=== PATIENT | female | born 1935 | race Caucasian/White ===

== ENCOUNTER 2017-02-13 08:07 | Observation (INO) | payer OTHER ==
--- NOTE | 2017-02-12 21:03 | GHP ---
[f rep st] PREOP HISTORY AND PHYSICAL DATE OF ADMISSION: 02/13/2017 HISTORY OF PRESENT ILLNESS: The patient is an 81-year-old female who was found to have gallstones o n an ultrasound to evaluate postprandial epigastric and right upper quadrant pain with radiation to her back, with no nausea, vomiting, or fevers. [place] foods are exacerbating. Spicy foods do nothi ng. Rolaids help, but she says this pain is different from her other heartburn pain. She said she had labs a few months ago and was told they were normal. Abdominal surgical history includes vagina l hysterectomy. PAST MEDICAL HISTORY: Includes osteoporosis; L1, L2 fractures treated with brace. PAST SURGICAL HISTORY: Hysterectomy. MEDICATIONS: Fosamax. Multivitamins. Rolaids. ALLERGIES: Penicillin results in cannot breathe, also lentils. SOCIAL HISTORY: Patient lives in [place]. She denies tobacco use. FAMILY HISTORY: Denies heart disease, cancer or diabetes. REVIEW OF SYSTEMS: Negative 10-point review of systems, aside from that in the HPI. PHYSICAL EXAMINATION: GENERAL: Reveals an alert female who appears younger than her stated age, in no acute distress. HEENT: Normocephalic, atraumatic. Pupils equal and round. No jaundice. PULM ONARY: Clear to auscultation bilaterally. CARDIAC: Regular rate and rhythm. ABDOMEN: Soft. Mil d right upper quadrant tenderness. Negative Zhu sign. Well-healed low transverse scar. EXTREMI TIES: Normal gait. Warm and well perfused. NEURO: Grossly intact. SKIN: Warm and dry. IMPRESSION: This is an 81-year-old female with symptomatic cholelithiasis. PLAN: To proceed with a laparoscopic cholecystectomy. Again, risks and options have been fully discussed, including but not limited to bleeding; infection ; nerve injury; bile duct injury; retained stones; need for ERCP, open surgery; damage to surroundin g structures; and other risks, and she requests to proceed. Patient was seen by both Saira Monreal and Dr. Stanley. /[id number]/[facility] [place]
--- NOTE | 2017-02-13 07:20 | PDHPUP ---
History & Physical Update H&P update statement: This history and physical update is based on an assessment of the patient which was completed after admission or registration (within 24 hours), but prior to the surgery/procedure. H&P update: H&P reviewed & patient examined, no change in patient's condition since H&P completed
[2017-02-13] MEDS ORDERED: LIDOCAINE 1% 2 ML INJ ONE (08:18)
[2017-02-13] MEDS ORDERED: LR 1,000 ML IV ONE (08:28)
[2017-02-13] MEDS ORDERED: LIDOCAINE 1% 2 ML INJ ID PRN (08:28)
[2017-02-13] MEDS ORDERED: BUPIVACAINE 0.5% 30 ML SDV ONE (08:58)
[2017-02-13] MEDS ORDERED: HEPARIN 1000 UNIT/1 ML MDV ONE ×2 (08:58→09:03)
[2017-02-13] MEDS ORDERED: ceFAZolin 1 GM/5 ML SYR ONE ×2 (08:59→11:15)
[2017-02-13] MEDS ORDERED: DEXAMETHASONE 4 MG/ML VIAL ONE ×2 (10:26)
[2017-02-13] MEDS ORDERED: fentaNYL 100 MCG/2 ML INJ ONE (10:26)
[2017-02-13] MEDS ORDERED: ROCURONIUM 50 MG/5 ML VIAL ONE (10:26)
[2017-02-13] MEDS ORDERED: PROPOFOL 200 MG/20 ML VIAL ONE (10:26)
[2017-02-13] MEDS ORDERED: METOCLOPRAMIDE 10 MG/2 ML VIAL ONE (10:26)
[2017-02-13] MEDS ORDERED: LIDOCAINE 2% 5 ML SDV ONE (10:26)
--- NOTE | 2017-02-13 10:34 | PDANEPAE ---
ANE Past Medical History - Cardiovascular History Hx Hypertension: No Hx Arrhythmias: No Hx Chest Pain: No Hx Coronary Artery / Peripheral Vascular Disease: No Hx CHF / Valvular Disease: No Hx Palpitations: No - Pulmonary History Hx COPD: No Hx Asthma/Reactive Airway Disease: No Hx Recent Upper Respiratory Infection: No Hx Oxygen in Use at Home: No Hx Sleep Apnea: No Sleep Apnea Screening Result - Last Documented: Negative - Neurologic History Hx Cerebrovascular Accident: No Hx Seizures: No Hx Dementia: No - Endocrine History Hx Diabetes: No - Renal History Hx Renal Disorders: No Renal History Comment: "slow urination" after testing by Urologist - Liver History Hx Hepatic Disorders: No - Neurological & Psychiatric Hx Hx Neurological and Psychiatric Disorders: Yes Neurological / Psychiatric History Comment: "broke my back -L1 L2" last Jun 2016. "muscles hurt some time" - Cancer History Hx Cancer: No - Congenital Disorder History Hx Congenital Disorders: No - GI History Gastrointestinal History Comment: Gall stones.poss R inguinal hernia. - Chronic Pain History Chronic Pain: No - Surgical History Prior Surgeries: abdomoplasty appro 2013. bilat cataract extractions w/IOL implants appro 2006. hysterectomy appro 1976 ANE Review of Systems - Exercise capacity METS (RN): 4 METS ANE Patient History - Allergies Allergies/Adverse Reactions: cephalexin monohydrate [From Keflex] Allergy (Verified 05/25/13 17:57) egg [Egg] Allergy (Verified 05/25/13 17:57) oxytetracycline [From Terramycin] Allergy (Verified 02/08/17 14:06) Other-Enter Comments oxytetracycline HCl [From Terramycin] Allergy (Verified 02/08/17 14:06) Penicillins Allergy (Verified 02/08/17 14:06) Other-Enter Comments Sulfa (Sulfonamide Antibiotics) Allergy (Verified 02/08/17 14:06) Other-Enter Comments - Home Medications Home Medications: Rolaids Chewable Tablet 02/08/17 [Last Taken 02/12/17] Tylenol 02/08/17 [Last Taken 02/12/17] Zantac 02/08/17 [Last Taken 02/12/17] - NPO status NPO Since - Liquids (Date): 02/12/17 NPO Since - Liquids (Time): 23:00 NPO Since - Solids (Date): 02/12/17 NPO Since - Solids (Time): 18:00 - Smoking Hx Smoking Status: Never smoked ANE Labs/Vital Signs - Vital Signs Blood Pressure: 155/90 Heart Rate: 74 Respiratory Rate: 16 O2 Sat (%): 97 Height: 157.48 cm Weight: 54.431 kg ANE Physical Exam - Airway Mallampati Score: Class 2 Mouth exam: normal dental/mouth exam - Pulmonary Pulmonary: no respiratory distress - Cardiovascular Cardiovascular: regular rate and rhythym - ASA Status ASA Status: II
[2017-02-13] MEDS ORDERED: SUGAMMADEX SODIUM 200 MG/2 ML VIAL IVP ONE (11:23)
[2017-02-13] MEDS ORDERED: NALOXONE HCL 0.4 MG/ML INJ IVP PRN (11:42)
[2017-02-13] MEDS ORDERED: fentaNYL 100 MCG/2 ML INJ IVP PRN ×2 (11:42)
[2017-02-13] MEDS ORDERED: PROMETHAZINE HCL 25 MG/ML INJ IVP PRN (11:42)
[2017-02-13] MEDS ORDERED: HYDROCODONE/APAP 5/325 TAB PO PRN ×2 (11:42→11:45)
[2017-02-13] MEDS ORDERED: LR 500 ML IV PRN (11:42)
[2017-02-13] MEDS ORDERED: LABETALOL HCL 50 MG/10 ML SYR IVP PRN (11:42)
[2017-02-13] MEDS ORDERED: OXYCODONE/APAP 5/325 TAB PO PRN (11:42)
[2017-02-13] MEDS ORDERED: ACETAMINOPHEN 500 MG TAB PO PRN (11:42)
[2017-02-13] MEDS ORDERED: MEPERIDINE 25 MG/ML SYR IVP PRN (11:42)
--- NOTE | 2017-02-13 11:42 | POSTANESTH ---
Post Anesthetic Evaluation Respiratory Status: Normal, Stable Level of Consciousness/Mental Status: Can Participate in Eval Pain Control: Adequate, Prn Tx Ordered Nausea/Vomiting Control: Adequate, Prn Tx Ordered Complications Possibly Related to Anesthesia: None Noted
--- NOTE | 2017-02-13 11:54 | POSTOPPROG ---
Post Op Note Date of Operation: 02/13/17 Surgeon: Raphael Stanley Cfd Engineer: Saira Monreal Anesthesiologist: Kit Sorto Anesthesia: GET(General Endotracheal) Pre-op Diagnosis: cholelithasis, groin pain possible hernia Post-op Diagnosis: same, no hernia appreciated Procedure: lap maksim with pelvic exploration Findings: adhesions to gallbladder, +stones, no hernias Inf/Abcess present in the surg proc area at time of surgery?: No EBL: Minimal Complications: none
[2017-02-13] MEDS ORDERED: LABETALOL HCL 50 MG/10 ML SYR ONE (11:56)
[2017-02-13] MEDS: HYDROmorphONE/DILAUDID 1 MG/ML SYR IVP PRN ×2 (12:15→12:40)
[2017-02-13] MEDS ORDERED: HYDROmorphONE/DILAUDID 1 MG/ML SYR ONE (12:15)
[2017-02-13] MEDS ORDERED: ONDANSETRON 4 MG/2 ML VIAL ONE ×3 (13:53→14:39)
[2017-02-13] MEDS: ONDANSETRON 4 MG/2 ML VIAL IVP PRN ×2 (13:58→14:41)
[2017-02-13] MEDS ORDERED: ONDANSETRON 4 MG/2 ML VIAL IVP PRN (15:02)
[2017-02-13] MEDS ORDERED: HYDROmorphONE/DILAUDID 1 MG/ML SYR IVP PRN (15:02)
[2017-02-13] MEDS ORDERED: NS W/ 20 KCl/L 1,000 ML IV SCH (15:15)
[2017-02-13 16:39] VITALS: RESP 16
[2017-02-14 07:50] VITALS: BP 132/68; PULSE 67; TEMP 98.3; O2SAT 95
--- NOTE | 2017-02-14 10:00 | SOAPPROG ---
SOAP Progress Note Assessment/Plan: Assessment/Plan: 81 Y F s/p lap maksim, pelvic exploration, POD#1. Stayed overnight for some nausea, dizziness. Doing well this am. D/c to home. Son has Rx. S: pain controlled. eating. no n/v. no dizziness. eager to go home. O: alert, nad, appropriate mmm, no jaundice ctab rrr abd +BS, inc cdi 02/14/17 09:58 Objective: Vital Signs Temp Pulse Resp BP Pulse Ox 36.8 C 67 16 132/68 H 95 02/14/17 07:45 02/14/17 07:45 02/14/17 07:45 02/14/17 07:45 02/14/17 07:45 02/13/17 02/14/17 02/15/17 05:59 05:59 05:59 Intake Total 1060 Output Total 5 Balance 1055 ICD10 Worksheet Patient Problems: Problems Problem Status Onset Diarrhea Acute Fever Acute
--- NOTE | 2017-02-15 06:28 | GOP ---
[f rep st] OPERATIVE REPORT DATE OF OPERATION: 02/13/2017 SURGEON: Raphael Stanley MD CLIENT RELATION SPECIALIST: BLAYNE Ambriz ANESTHESIOLOGIST: Dr. Sorto PREOPERATIVE DIAGNOSIS: Symptomatic gallstones and chronic cholecystitis and right lower quadrant p ain. POSTOPERATIVE DIAGNOSIS: Symptomatic gallstones and chronic cholecystitis and right lower quadrant pain. PROCEDURE PERFORMED: Diagnostic laparoscopy and laparoscopic cholecystectomy. FINDINGS: The patient was found to have soft gallbladder with adhesions to the gallbladder and smal l stones and small ducts. There was no evidence of any tumors or hernias in the right lower quadran t to explain some discomfort she has there except for some minor adhesions to the cecum. DESCRIPTION OF PROCEDURE: The patient was taken to the operating room, where she received satisfact ory general endotracheal anesthesia. Placed in supine position, prepped and draped in usual sterile fashion. An infraumbilical incision was made. A Veress needle inserted. Pneumoperitoneum was est ablished. Trocar was introduced. Laparoscope was introduced. Three other trocars were placed in [facility] upper abdomen under direct vision. The right lower quadrant was examined thoroughly with the pat ient in Trendelenburg. There was no evidence of herniation, masses or abnormalities. She had some residual ovary and tube in that area, but did not appear to be inflamed or abnormal. There were larry e minor adhesions to the cecum. No evidence of herniation. Attention was then turned to the gallbl adder. The gallbladder was elevated up. Adhesions were taken down. The cystic triangle was carefu lly dissected free. The cystic duct and cystic artery were isolated. A good clear view was obtaine d. The gallbladder was from the liver bed and the cystic artery and cystic duct were mult iply hemoclipped and divided with care to avoid injury to the common bile duct. The peritoneum of [facility] gallbladder was incised. The gallbladder was dissected free in the bed and hepatic fossa, and ex tracted through the upper midline port site. Hemostasis was assured. The wound was irrigated. Tro cars were removed under direct vision. Trocar sites were closed with 0 Vicryl for the fascia, 4-0 M onocryl subcuticular stitch for the skin. All layers were infiltrated with 0.5% Marcaine. Blood lo ss was negligible. No complications. /[id number]/[facility]
[2017-02-15] MEDS ORDERED: ENOXAPARIN 40 MG/0.4 ML SYR SC SCH (09:00)
== END 2017-02-14 12:13 | disposition home or self-care (01) ==
LOC: FSGY 08:07 → F3E 15:00
PROVIDERS: ADMIT Surgery; ATTEND Surgery
PROC: 0FT44ZZ Resection of Gallbladder, Percutaneous Endoscopic Approach (ICD-10-PCS; principal; 2017-02-13 10:00)
DX: K80.10 Calculus of gallbladder with chronic cholecystitis without obstruction (principal); R10.9 Unspecified abdominal pain; M81.0 Age-related osteoporosis without current pathological fracture; Z88.0 Allergy status to penicillin; Z88.2 Allergy status to sulfonamides
CPT/HCPCS: 47562; 88304; J0690; J1100; J1170; J1956; J2405; J2704; J2765; J3010

== ENCOUNTER 2017-03-14 12:53 | Emergency (ER) | payer OTHER ==
--- NOTE | 2017-03-14 14:23 | EDPHY ---
HPI/HX/ROS/PE/MDM Narrative: CHIEF COMPLAINT: Imbalance HPI: This patient is an 81 year old female with history of Mnire's complaining of imbalance onset two days ago. 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 This resolved within 15 minutes. Yesterday, she visited her doctor for a routine visit, and he impressed the importance of not ignoring similar symptoms in the future. Today, she has felt more unsteady walking, and feels symptoms similar to those associated with her Mnire's. She denies fever, pain anywhere in her body, shortness of breath, or other associated symptoms. She does have history of a cardiac arrhythmia which she has had for her entire life. REVIEW OF SYSTEMS: Aside from elements discussed in the HPI, a comprehensive 10-point review of systems was reviewed and is negative. PMH: Meniere's. TIA. Cholecystectomy SOCIAL HISTORY: . Lives in [place]. PHYSICAL EXAM: General:Patient is alert, in no acute distress. ENT:Eyes are normal to inspection. ENT inspection normal. Neck: Normal inspection. Full range of motion. Respiratory:No respiratory distress. Breath sounds normal bilaterally. Cardiovascular: Regular rate and rhythm. Strong peripheral pulses. Normal cap refill. Abdomen:The abdomen is nontender to palpation. There are no peritoneal signs. There are normal bowel sounds. Back: Normal to inspection. No tenderness to palpation. Skin: Normal color. No rash. Warm and dry. Extremities: Normal appearance. Full range of motion. Neuro: Oriented x3. Normal motor function. Normal sensory function. No pronatory drift. Normal [id number]. Normal rbir-og-[id number]. Normal dysdiadochokinesis Portions of this note were transcribed by an ED scribe. I personally performed the history, physical exam, and medical decision making; and confirm the accuracy of the information in the transcribed note. ED Course: 17:[address] 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 Given report of TIA-like symptoms last week, we performed an extensive workup to exclude CVA or posterior circulation abnormality. Thankfully, MR/MRA are normal. On re-evaluation, patient is asymptomatic at rest but symptomatic when walking. I offered to admit her to the hospital for symptomatic management and further evaluation but she declines. I have encouraged her to follow-up with her PCP. I have written a prescription for meclizine. The patient plans to drive home. I expressed concern about this plan but she is adamant that she is safe to drive and says she has no other way to get home. - Data Points Imaging Results: Imaging Impressions Brain MRI 03/14/17 14:28 Impression: 1. Elderly brain with atrophy and presumed small vessel ischemic disease. 2. Negative for acute ischemia. Results called and discussed with Maykel Foster MD. Head MRA 03/14/17 14:28 Impression: Negative MRA of the [place] of [place]. MR Angiogram of the Neck Clinical Indications: Sudden visual loss and vertigo in an 81-year-old female; evaluate for vascular abnormality. Technique: After a preliminary timing bolus run, a three-dimensional vascular ymii-gz-sktkfd study was performed from the upper chest to the skull base, using a total of 10 mL Gadavist (gadolinium) intravenously. This contrast dose was employed for evaluation of the neck and brain. Images were manipulated by the radiologist at the computer workstation. Findings: The aortic arch has typical 3-vessel branching anatomy. The common carotid arteries and vertebral arteries are patent. The common carotid bifurcations demonstrate no evidence of flow-limiting stenosis, occlusion, or dissection. The vertebral arteries are patent without evidence of obstruction or dissection. Impression: MRA of the cervical carotids and vertebrals demonstrates no evidence of flow-limiting stenosis, occlusion, or dissection. Measurements of carotid stenosis is based on the residual internal carotid diameter with [place] Symptomatic Carotid Endarterectomy Trial (NASCET) based stenosis levels. Results called and discussed with Maykel Foster MD on 03/14/2017 at 17:22 Neck MRA 03/14/17 14:28 Impression: Negative MRA of the [place] of [place]. MR Angiogram of the Neck Clinical Indications: Sudden visual loss and vertigo in an 81-year-old female; evaluate for vascular abnormality. Technique: After a preliminary timing bolus run, a three-dimensional vascular pjnr-ig-cautrn study was performed from the upper chest to the skull base, using a total of 10 mL Gadavist (gadolinium) intravenously. This contrast dose was employed for evaluation of the neck and brain. Images were manipulated by the radiologist at the computer workstation. Findings: The aortic arch has typical 3-vessel branching anatomy. The common carotid arteries and vertebral arteries are patent. The common carotid bifurcations demonstrate no evidence of flow-limiting stenosis, occlusion, or dissection. The vertebral arteries are patent without evidence of obstruction or dissection. Impression: MRA of the cervical carotids and vertebrals demonstrates no evidence of flow-limiting stenosis, occlusion, or dissection. Measurements of carotid stenosis is based on the residual internal carotid diameter with [place] Symptomatic Carotid Endarterectomy Trial (NASCET) based stenosis levels. Results called and discussed with Maykel Foster MD on 03/14/2017 at 17:22 Laboratory Results: Laboratory Results 03/14/17 14:40 03/14/17 14:40 03/14/17 03/14/17 14:40 14:40 WBC 5.80 10^3/uL 10^3/uL (3.80-9.50) RBC 4.47 10^6/uL 10^6/uL (4.18-5.33) Hgb 14.7 g/dL g/dL (12.6-16.3) Hct 44.1 % % (38.0-47.0) MCV 98.7 fL fL (81.5-99.8) MCH 32.9 pg pg (27.9-34.1) MCHC 33.3 g/dL g/dL (32.4-36.7) RDW 13.6 % % (11.5-15.2) Plt Count 267 10^3/uL 10^3/uL (150-400) MPV 10.4 fL fL (8.7-11.7) Neut % (Auto) 67.6 % % (39.3-74.2) Lymph % (Auto) 16.9 % % (15.0-45.0) [place] % (Auto) 12.4 % % (4.5-13.0) Eos % (Auto) 1.9 % % (0.6-7.6) Baso % (Auto) 0.9 % % (0.3-1.7) Nucleat RBC Rel Count 0.0 % % (0.0-0.2) Absolute Neuts (auto) 3.92 10^3/uL 10^3/uL (1.70-6.50) Absolute Lymphs (auto) 0.98 10^3/uL L 10^3/uL (1.00-3.00) Absolute Monos (auto) 0.72 10^3/uL 10^3/uL (0.30-0.80) Absolute Eos (auto) 0.11 10^3/uL 10^3/uL (0.03-0.40) Absolute Basos (auto) 0.05 10^3/uL 10^3/uL (0.02-0.10) Absolute Nucleated RBC 0.00 10^3/uL 10^3/uL (0-0.01) Immature Gran % 0.3 % % (0.0-1.1) Immature Gran # 0.02 10^3/uL 10^3/uL (0.00-0.10) Sodium 143 mEq/L mEq/L (134-144) Potassium 3.6 mEq/L mEq/L (3.5-5.2) Chloride 103 mEq/L mEq/L (97-110) Carbon Dioxide 28 mEq/l mEq/l (22-31) Anion Gap 12 mEq/L mEq/L (8-16) BUN 12 mg/dL mg/dL (7-23) Creatinine 0.7 mg/dL mg/dL (0.6-1.0) Estimated GFR > 60 Glucose 77 mg/dL mg/dL (70-100) Calcium 9.7 mg/dL mg/dL (8.5-10.4) Troponin I < 0.012 ng/mL ng/mL (0-0.034) General Time Seen by Provider: 03/14/17 14:11 Initial Vital Signs: Initial Vital Signs Temperature (C) 36.6 C 03/14/17 12:55 Heart Rate 80 03/14/17 12:55 Respiratory Rate 18 03/14/17 12:55 Blood Pressure 146/73 H 03/14/17 12:55 O2 Sat (%) 96 03/14/17 12:55 O2 Delivery Mode Room Air Allergies/Adverse Reactions: cephalexin monohydrate [From Keflex] Allergy (Verified 03/14/17 12:55) egg [Egg] Allergy (Verified 03/14/17 12:55) oxytetracycline [From Terramycin] Allergy (Verified 03/14/17 12:55) Other-Enter Comments oxytetracycline HCl [From Terramycin] Allergy (Verified 03/14/17 12:55) Penicillins Allergy (Verified 03/14/17 12:55) Other-Enter Comments Sulfa (Sulfonamide Antibiotics) Allergy (Verified 03/14/17 12:55) Other-Enter Comments Home Medications: Medication Instructions Recorded Meclizine HCl [Meclizine HCl 25 mg 25 - 50 mg PO BID PRN #14 tab 03/14/17 (RX,OTC)] Departure - Departure Disposition: Home, Routine, Self-Care Clinical Impression: Vertigo Condition: Good Instructions: Vertigo (ED) Additional Instructions: Use meclizine as prescribed. Drink plenty of fluids. Return to the emergency department immediately for headache, numbness, weakness, severe vertigo, neck pain, inability to tolerate fluids by mouth or other worsening of condition. If symptoms persist for more than 48 hours, follow up with your primary care physician and/or a neurologist for further evaluation. Referrals: Greyson Alex MD [Primary Care Provider] - As per Instructions Dave Zamora MD [Medical Doctor] - As per Instructions Prescriptions: Meclizine HCl [Meclizine HCl 25 mg (RX,OTC)] 25 - 50 mg PO BID PRN #14 tab PRN Reason: vertigo Report Scribed for: Maykel Foster Report Scribed by: Tati Feliciano Date of Report: 03/14/17 Time of Report: 14:17
--- NOTE | 2017-03-14 14:54 | CPEKG ---
Heart Rate: 61 RR Interval: 984 P-R Interval: 168 QRSD Interval: 86 QT Interval: 468 QTC Interval: 472 P [place]: 21 QRS [place]: 19 T Wave [place]: -48 EKG Severity - ABNORMAL ECG - EKG Impression: SINUS RHYTHM EKG Impression: REPOL ABNRM SUGGESTS ISCHEMIA, ANT-LAT LEADS EKG Impression: SIMILAR ST/T WAVE CHANGES WERE NOTED WITH ECG FROM 2012 Electronically Signed By: Jermain Lawson 16-Mar-2017 15:27:22
[2017-03-14 14:59] LABS: % IMMATURE GRANULYOCYTES 0.3 % (0.0-1.1); ABSOLUTE IMMATURE GRANULOCYTES 0.02 10^3/uL (0.00-0.10); ADD DIFF? NO; ADD MORPH? NO; ADD SCAN? NO; ATYPICAL LYMPHOCYTE FLAG 0 (0-99); FRAGMENT RBC FLAG 10 (0-99); HEMATOCRIT 44.1 % (38.0-47.0); HEMOGLOBIN 14.7 g/dL (12.6-16.3); LEFT SHIFT FLG 0 (0-99); LIPEMIA HEMOLYSIS FLAG 80 (0-99); MEAN CELL HEMOGLOBIN 32.9 pg (27.9-34.1); MEAN CELL HEMOGLOBIN CONCENTR. 33.3 g/dL (32.4-36.7); MEAN CELL VOLUME 98.7 fL (81.5-99.8); MEAN PLATELET VOLUME 10.4 fL (8.7-11.7); PLATELET CLUMPS FLAG 0 (0-99); PLATELET COUNT 267 10^3/uL (150-400); RED BLOOD CELL COUNT 4.47 10^6/uL (4.18-5.33); RED CELL DISTRIBUTION WIDTH 13.6 % (11.5-15.2)
[2017-03-14 15:12] LABS: ANION GAP 12 mEq/L (8-16); CALCIUM 9.7 mg/dL (8.5-10.4); CARBON DIOXIDE 28 mEq/l (22-31); CHLORIDE 103 mEq/L (97-110); CREATININE 0.7 mg/dL (0.6-1.0); GLOMERULAR FILTRATION RATE > 60; GLUCOSE 77 mg/dL (70-100); POTASSIUM 3.6 mEq/L (3.5-5.2); SODIUM 143 mEq/L (134-144)
[2017-03-14 15:24] LABS: TROPONIN I < 0.012 ng/mL (0-0.034)
[2017-03-14] MEDS ORDERED: GADOBUTROL 10 ML VIAL IVP ONE (15:29)
[2017-03-14] MEDS ORDERED: ACETAMINOPHEN 500 MG TAB ONE (18:55)
[2017-03-14] MEDS ORDERED: ACETAMINOPHEN 500 MG TAB PO ONE (18:56)
[2017-03-14] MEDS ORDERED: MECLIZINE HCL 25 MG TAB PO ONE (18:59)
[2017-03-14 19:13] VITALS: RESP 16; O2SAT 95
[2017-03-14 19:14] VITALS: BP 185/95; PULSE 71; TEMP 97.7
== END 2017-03-14 19:14 | disposition home or self-care (01) ==
DX: R42 Dizziness and giddiness (principal)
CPT/HCPCS: 70544; 70548; 70553; 93005; 99285; A9585

== ENCOUNTER → 2017-04-19 | Outpatient (CLI) | payer OTHER | LOC: BHFA 13:15 | PROVIDERS: ATTEND Internal Medicine Cardiovascular Disease | DX: G45.9 Transient cerebral ischemic attack, unspecified (principal) ==